=== PATIENT | female | born 1950 | race Caucasian/White ===

== ENCOUNTER → 2025-04-14 08:37 | Outpatient (REF) | payer MEDICARE, OTHER, SELFPAY ==
[2025-04-14 11:38] LABS: Hematocrit 36.3 % (37.0-47.0); Hemoglobin 12.1 g/dL (12.0-16.0); Mean Corp Hgb Conc. 33.3 g/dL (33.0-37.0); Mean Corpuscular Hgb 30.7 pg (27.0-31.0); Mean Corpuscular Volume 92.1 fL (81.0-99.0); Mean Platelet Volume 11.1 fL (7.4-10.4); Platelet Count 270 10^3/uL (130-400); Red Blood Cell Count 3.94 10^6/uL (4.20-5.40); Red Cell Dist. Width 14.2 % (11.5-14.5); White Blood Cell Count 10.8 10^3/uL (4.8-10.8)
[2025-04-14 12:11] LABS: ALT (SGPT) 22 U/L (0-35); AST (SGOT) 22 U/L (14-36); Albumin 4.4 g/dl (3.5-5.0); Alkaline Phosphatase 77 U/L (38-126); Blood Urea Nitrogen 13 mg/dl (7-17); Calcium 9.6 mg/dl (8.4-10.2); Carbon Dioxide 26 mmol/L (22-30); Chloride 104 mmol/L (98-107); Glucose 95 mg/dl (70-99); Potassium 5.1 mmol/L (3.5-5.1); Sodium 136 mmol/L (135-145); Total Bilirubin 0.6 mg/dl (0.2-1.3); Total Protein 6.6 g/dl (6.3-8.2); eGFR > 60.00
== END ==
LOC: SDSPAT 08:37
PROVIDERS: ATTENDING PHYSICIAN Surgery; FAMILY PHYSICIAN Family Medicine
DX: Z01.818 Encounter for other preprocedural examination (principal)
CPT/HCPCS: 36415; 80053; 85027; 93005

== ENCOUNTER 2025-04-26 06:15 | Day surgery (SDC) | payer MEDICARE, OTHER, SELFPAY ==
[2025-04-14 08:59] VITALS: BMI 27.5
[2025-04-26] VITALS (11 sets, daily range): BP systolic 91–149; BP diastolic 29–74; BMI 27.5
[2025-04-26 07:22] LABS: Glucose - Point of Care 86 mg/dl (70-99)
[2025-04-26] MEDS: NORMOSOL-R/PLASMALYTE-A 1000 IV (07:25)
[2025-04-26] MEDS: TYLENOL 1000 MG PO (07:30)
[2025-04-26] MEDS: IC GREEN 2.5 MG IV (07:31)
--- NOTE | 2025-04-26 08:00 | HP.FOC2 ---
Focused History & Physical
Chief Complaint
HPI:
Chief Complaint: Chronic calculus cholecystitis
HPI / Indication for Planned Procedure: Patient is a 74-year-old female recently hospitalized this past September secondary to an acute episode of biliary colic. She states that 20 to 30 years ago she was told she had 2 gallbladders when she
underwent previous imaging as an incidental finding.
During her emergency department evaluation/hospitalization she was treated conservatively for cholecystitis since her HIDA scan was negative and discharged. Subsequent outpatient workup including MRI/MRCP identified 2 separate gallbladders with
separate cystic ducts 1 containing focal calcification consistent with gallstone. Gallbladder is with wall thickening consistent with adenomyomatosis. Negative for choledocholithiasis.
She presents today for cholecystectomy.
Relevant Past Medical History: Other (Asthma, sleep apnea, history of kidney stones, hypercholesterolemia, hypertension, A-fib, history of pulmonary edema, diabetes)
Relevant Social History: Negative
Relevant Family History: Negative
Relevant Past Surgical History: Positive for ( x 2, appendectomy, ovarian cystectomy, TNA, salivary gland removal, bilateral knee replacements)
Review of Systems
Review of Pertinent Systems: All Systems Negative
Medication
See Medication form for detailed medications: Yes
Medication List (including Herbals & OTC):
amlodipine 5 mg tablet 5 mg PO QPM 04/19/25
apixaban 5 mg tablet (Eliquis) 5 mg PO BID 04/19/25
cholecalciferol (vitamin D3) 50 mcg (2,000 unit) tablet (Vitamin D3) 100 mcg PO DAILY 04/19/25
coenzyme Q10 30 mg capsule 30 mg PO DAILY 04/19/25
escitalopram oxalate 5 mg tablet 5 mg PO HS 04/19/25
estradiol 1 dose vaginal .2 TIMES A WEEK prevent UTIs 04/19/25
fluticasone 250 mcg-salmeterol 50 mcg/dose blistr powdr for inhalation (Advair Diskus) 1 inh inhalation BID 04/19/25
fluticasone propionate 220 mcg/actuation HFA aerosol inhaler 2 puff inhalation DAILY 04/19/25
irbesartan 150 mg-hydrochlorothiazide 12.5 mg tablet 1 tab PO DAILY 04/19/25
loratadine 10 mg tablet (Claritin) 10 mg PO DAILY 04/19/25
metformin 1,000 mg tablet 1,000 mg PO DAILY 'longevity' 04/19/25
montelukast 10 mg tablet 10 mg PO QPM 04/19/25
multivitamin 1 tab PO DAILY 04/19/25
rosuvastatin 40 mg tablet 40 mg PO QPM 04/19/25
vitamin B complex 1 tab PO DAILY 04/19/25
cyclosporine 0.05 % eye drops in a dropperette (Restasis) 1 drp ophthalmic (eye) Q12H 04/26/25
Medications Reviewed: Yes
Allergies and Reactions
Patient has Allergies: Yes
Noted Allergies and Reactions:
Allergy/AdvReac Type Severity Reaction Status Date / Time
celecoxib (From Celebrex) Allergy Unknown Verified 04/26/25 07:23
levofloxacin (From Levaquin) Allergy lips & Verified 04/26/25 07:23
eyes swell
Sulfa (Sulfonamide Allergy Unknown Verified 04/26/25 07:23
Antibiotics)
'other antibiotics like Allergy Unknown Uncoded 04/26/25 07:23
Levaquin'
Pertinent Physical Exam
All Other Systems: Negative
Head/Neck: Normal
Lungs: Normal
Heart: Normal
Abdomen: Normal
Extremities: Normal
Neurological: Normal
Diagnosis / Assessment
74-year-old female presenting for cholecystectomy for definitive management of symptomatic cholelithiasis/chronic calculus cholecystitis. Imaging also notable for anatomic variant with an accessory gallbladder and a Y shaped configuration coming
off a common cystic duct which is then inserted into the main common bile duct.
Plan / Procedure
Robotic assisted laparoscopic cholecystectomy with probable cholangiogram
Anesthesia/Sedation to be done by Anesthesia Provider: Yes
--- NOTE | 2025-04-26 08:04 | W.SUR.PREOP ---
Pre-Operative Surgical Note
-
I have examined this patient prior to the performance of the scheduled procedure.
The patient's condition is unchanged from the time of the current History and
Physical and the patient is able to undergo the scheduled procedure.
--- NOTE | 2025-04-26 10:50 | W.IMMPOSTOP ---
Addendum entered and electronically signed by Emerson Glover MD 04/26/25 11:16:
#[id number]
Original Note:
Surgical Immed Post Op Note
-
Primary Surgeon: Emerson Glover MD
Assisting Surgeon: Jane Rudd PA-c
Pre-op Diagnosis: Biliary colic/symptomatic cholelithiasis; accessory gallbladder
Post-op Diagnosis: Same
Procedure Performed: Robotic assisted laparoscopic cholecystectomy with intraoperative fluorescent imaging
Anesthesia Type: GETA +0.25% Marcaine
Specimen / Cultures: Gallbladder with accessory gallbladder
Estimated Blood Loss: 6 mL
Complications: None immediate
Operative Findings: 2 gallbladders with single peritoneal lining covering immediately adjacent to each other. 2 anterior cystic artery branches, 2 posterior cystic artery branches and single cystic artery branch located within the septum between
the gallbladder is each controlled with Weck clips. Cystic duct unified and intermittently adherent dissected out in unison with critical view of safety. 3 clips placed proximally and 1 clip distally. Gallbladder is removed off liver bed intact
and extracted at infraumbilical port site.
The assistance of Jane Rudd PA-C was required due to the complexity of the procedure. During the procedure Jane Rudd PA-C assisted with port placement, robotic instrumentation exchanges, and closure of the surgical incision sites. I was
present for the entirety of the operative procedure.
[2025-04-26] MEDS: SUBLIMAZE 50 MCG IV ×2 (11:17→11:36)
[2025-04-26] MEDS: ROXICODONE 5 MG PO (12:59)
== END 2025-04-26 13:42 | disposition home or self-care (01) ==
LOC: SDS 06:15
PROVIDERS: ATTENDING PHYSICIAN Surgery
DX: K80.10 Calculus of gallbladder with chronic cholecystitis without obstruction (principal); K80.60 Calculus of gallbladder and bile duct with cholecystitis, unspecified, without obstruction; Q44.1 Other congenital malformations of gallbladder
CPT/HCPCS: 47562; 82962; 88304